=== PATIENT | female | born 1985 | race African-American/Black ===

== ENCOUNTER 2017-06-23 12:57 | Emergency (ER) | payer OTHER ==
[~2017-06-23] VITALS: Ht 162.6 cm; Wt 97.5 kg
[2017-06-23 13:10] VITALS: BP 124/73
== END 2017-06-23 13:56 | disposition home or self-care (01) ==
LOC: ER 12:57
DX: J02.9 Acute pharyngitis, unspecified (principal)

== ENCOUNTER 2017-10-23 07:10 | Inpatient (IN) | payer MEDICAID ==
[~2017-10-23] VITALS: Ht 162.6 cm; Wt 98.0 kg
[2017-10-23 08:31] LABS: Basophils # (auto) 0 uL; Basophils % (auto) 0.3 % (0.0-2.0); Eosinophils # (auto) 0 uL; Hematocrit 38.8 % (36.0-46.0); Hemoglobin 13.2 g/dL (12.2-16.2); Lymphocytes # (auto) 0.7 uL; Lymphocytes % (auto) 11.8 % (10.0-50.0); Mean Corpuscular Hemoglobin 29.1 pg (28.0-32.0); Mean Corpuscular Volume 85.5 fL (80.0-100.0); Monocytes # (auto) 0.4 uL; Monocytes % (auto) 6.8 % (0.0-12.0); Neutrophils # (auto) 4.9 uL; Neutrophils % (auto) 81.1 % (37.0-80.0); Nucleated Red Blood Cells % 0.1 %; Platelet Count (auto) 182 10^3/uL (140-450); Red Blood Cells 4.54 10^6/uL (4.0-5.20); Red Cell Distribution Width 13.9 % (11.8-14.3)
[2017-10-23 08:36] LABS: Albumin 3.3 g/dL (3.4-5.0); BUN/Creatinine Ratio 4.5; Calcium 8.5 mg/dL (8.5-10.1); Potassium 3.2 mmol/L (3.5-5.1)
[2017-10-23 08:40] LABS: Bilirubin, Total 0.2 mg/dL (0.2-1.0)
[2017-10-23] MEDS ORDERED: POTASSIUM CHL 10% (20 MEQ/15ML) 15ml ORAL SOLN PO ONE (10:00)
[2017-10-23] MEDS ORDERED: KETOROLAC TROMETH 60MG/2ML VIAL IM ONE (10:00)
[2017-10-23 10:38] LABS: Urine Bacteria NONE SEEN /hpf (None Seen); Urine Blood 3+ /uL (Negative); Urine Mucus FEW (None Seen); Urine Specific Gravity 1.012 (1.001-1.035); Urine WBC 10 /hpf (0 - 5)
[2017-10-23] MEDS ORDERED: cefTRIAXone 1GM/10ml IVPUSH 10 ML IV ONE (11:00)
[2017-10-23] MEDS ORDERED: AZITHROMYCIN 500MG/ 250ML 250 ML IV ONE (11:00)
[2017-10-23] MEDS ORDERED: DOCUSATE SOD 100 MG CAP PO PRN (13:15)
[2017-10-23] MEDS ORDERED: MORPHINE SULFATE 4 MG/ML SYR/VIAL IV PRN (13:15)
[2017-10-23] MEDS ORDERED: ONDANSETRON HCL 4 MG/2 ML VIAL IV PRN (13:15)
[2017-10-23] MEDS ORDERED: NITROGLYCERIN 0.4 MG SL TAB SL PRN (13:15)
[2017-10-23] MEDS ORDERED: ACETAMINOPHEN 325 MG TAB PO PRN ×2 (13:15)
[2017-10-23] MEDS ORDERED: TEMAZEPAM 15 MG CAP PO PRN (13:15)
[2017-10-23] MEDS: SODIUM CHLORIDE 0.9% 1,000 ML IV SCH (13:58)
[2017-10-23 14:41] VITALS: BP 146/72
[2017-10-23 15:00] VITALS: BP 109/70
[2017-10-23] MEDS: HYDROcodone-ACET 5/325MG TAB PO PRN (15:26)
[2017-10-23 17:27] VITALS: BP 101/55
[2017-10-23] MEDS: BOOST PLUS 8 ounce PO SCH (18:02)
[2017-10-23 18:11] LABS: BUN/Creatinine Ratio 6.3; Calcium 7.8 mg/dL (8.5-10.1); Potassium 3.4 mmol/L (3.5-5.1)
[2017-10-23] MEDS: FAMOTIDINE 20 MG TAB PO SCH (21:34)
[2017-10-23 21:52] VITALS: BP 138/85
[2017-10-23 21:53] VITALS: BP 138/85
[2017-10-23] MEDS: IPRATROPIUM BROM 0.5 MG/2.5ML INH SOL NEB SCH (22:00)
[2017-10-23] MEDS: ALBUTEROL SULF 2.5 MG/0.5ML(0.5%) NEB SOLN NEB SCH (22:00)
[2017-10-24] MEDS: SODIUM CHLORIDE 0.9% 1,000 ML IV SCH ×2 (05:08→22:24)
[2017-10-24 05:28] VITALS: BP 114/68
[2017-10-24 06:51] LABS: Basophils # (auto) 0 uL; Basophils % (auto) 0.2 % (0.0-2.0); Eosinophils # (auto) 0 uL; Hematocrit 36.5 % (36.0-46.0); Hemoglobin 12.4 g/dL (12.2-16.2); Lymphocytes # (auto) 1.4 uL; Lymphocytes % (auto) 17.6 % (10.0-50.0); Mean Corpuscular Hemoglobin 29.2 pg (28.0-32.0); Mean Corpuscular Hgb Conc. 33.8 g/dL (32.0-36.0); Mean Corpuscular Volume 86.4 fL (80.0-100.0); Monocytes # (auto) 0.5 uL; Monocytes % (auto) 6.2 % (0.0-12.0); Platelet Count (auto) 167 10^3/uL (140-450); Red Blood Cells 4.23 10^6/uL (4.0-5.20); Red Cell Distribution Width 13.8 % (11.8-14.3); White Blood Cell 7.9 10^3/uL (4.4-10.8)
[2017-10-24 07:21] LABS: Albumin 2.7 g/dL (3.4-5.0); BUN/Creatinine Ratio 7.6; Bilirubin, Total 0.3 mg/dL (0.2-1.0); Calcium 7.8 mg/dL (8.5-10.1); Potassium 3.4 mmol/L (3.5-5.1); Total Protein 7.4 g/dL (6.4-8.2)
[2017-10-24] MEDS: MORPHINE SULFATE 4 MG/ML SYR/VIAL IV PRN ×3 (07:55→16:10)
[2017-10-24] MEDS: ALBUTEROL SULF 2.5 MG/0.5ML(0.5%) NEB SOLN NEB SCH ×3 (08:16→22:14)
[2017-10-24] MEDS: IPRATROPIUM BROM 0.5 MG/2.5ML INH SOL NEB SCH ×3 (08:16→22:14)
[2017-10-24 09:00] VITALS: BP 119/66
[2017-10-24] MEDS: BOOST PLUS 8 ounce PO SCH ×3 (09:03→18:19)
[2017-10-24] MEDS: cefTRIAXone 1GM/10ml IVPUSH 10 ML IV SCH (09:03)
[2017-10-24] MEDS: FAMOTIDINE 20 MG TAB PO SCH ×2 (09:21→22:17)
[2017-10-24] MEDS: HYDROcodone-ACET 5/325MG TAB PO PRN ×2 (09:21→14:22)
[2017-10-24] MEDS: MULTIPLE VITAMIN TAB PO SCH (09:21)
[2017-10-24] MEDS: AZITHROMYCIN 500MG/ 250ML 250 ML IV SCH (09:22)
[2017-10-24 12:00] VITALS: BP 105/68
[2017-10-24] MEDS: guaiFENesin-DM 100/10mg/5ml SYR GT PRN ×2 (16:14→20:24)
[2017-10-24 17:00] VITALS: BP 110/74
[2017-10-24 21:48] VITALS: BP 112/70
[2017-10-25] MEDS: guaiFENesin-DM 100/10mg/5ml SYR GT PRN ×4 (02:03→21:52)
[2017-10-25 04:50] VITALS: BP 116/73
[2017-10-25] MEDS: IPRATROPIUM BROM 0.5 MG/2.5ML INH SOL NEB SCH ×3 (06:06→22:42)
[2017-10-25] MEDS: ALBUTEROL SULF 2.5 MG/0.5ML(0.5%) NEB SOLN NEB SCH ×3 (06:06→22:42)
[2017-10-25 07:14] LABS: BUN/Creatinine Ratio 7.2; Calcium 8.9 mg/dL (8.5-10.1); Potassium 3.7 mmol/L (3.5-5.1)
[2017-10-25 08:00] VITALS: BP 114/67
[2017-10-25] MEDS: BOOST PLUS 8 ounce PO SCH ×3 (08:00→18:00)
[2017-10-25] MEDS: AZITHROMYCIN 500MG/ 250ML 250 ML IV SCH (10:16)
[2017-10-25] MEDS: cefTRIAXone 1GM/10ml IVPUSH 10 ML IV SCH (10:16)
[2017-10-25] MEDS: MULTIPLE VITAMIN TAB PO SCH (10:16)
[2017-10-25] MEDS: FAMOTIDINE 20 MG TAB PO SCH ×2 (10:17→21:52)
[2017-10-25 12:00] VITALS: BP 102/75
[2017-10-25] MEDS: SODIUM CHLORIDE 0.9% 1,000 ML IV SCH (15:04)
[2017-10-25 17:00] VITALS: BP 123/68
[2017-10-25 22:03] VITALS: BP 124/71
[2017-10-26 04:57] VITALS: BP 120/72
[2017-10-26] MEDS: IPRATROPIUM BROM 0.5 MG/2.5ML INH SOL NEB SCH ×2 (07:05→14:08)
[2017-10-26] MEDS: ALBUTEROL SULF 2.5 MG/0.5ML(0.5%) NEB SOLN NEB SCH ×2 (07:05→14:08)
[2017-10-26 08:05] VITALS: BP 117/79
[2017-10-26 08:08] LABS: Basophils # (auto) 0 uL; Basophils % (auto) 0.2 % (0.0-2.0); Eosinophils # (auto) 0 uL; Eosinophils % (auto) 0.4 % (0.0-7.0); Hematocrit 35.3 % (36.0-46.0); Hemoglobin 11.9 g/dL (12.2-16.2); Lymphocytes % (auto) 48.4 % (10.0-50.0); Mean Corpuscular Hemoglobin 29.2 pg (28.0-32.0); Mean Corpuscular Hgb Conc. 33.7 g/dL (32.0-36.0); Mean Corpuscular Volume 86.6 fL (80.0-100.0); Monocytes # (auto) 0.4 uL; Monocytes % (auto) 9.2 % (0.0-12.0); Neutrophils # (auto) 1.7 uL; Neutrophils % (auto) 41.8 % (37.0-80.0); Nucleated Red Blood Cells % 0.2 %; Platelet Count (auto) 202 10^3/uL (140-450); Red Blood Cells 4.08 10^6/uL (4.0-5.20); Red Cell Distribution Width 14.1 % (11.8-14.3); White Blood Cell 4.1 10^3/uL (4.4-10.8)
[2017-10-26 08:16] LABS: Albumin 2.8 g/dL (3.4-5.0); BUN/Creatinine Ratio 5.6; Bilirubin, Total 0.3 mg/dL (0.2-1.0); Calcium 8.7 mg/dL (8.5-10.1); Potassium 3.6 mmol/L (3.5-5.1); Total Protein 7.9 g/dL (6.4-8.2)
[2017-10-26 08:37] VITALS: BP_SYST 117; BP_DIAS 116; BP_DIAS 79
[2017-10-26] MEDS: cefTRIAXone 1GM/10ml IVPUSH 10 ML IV SCH (09:09)
[2017-10-26] MEDS: SODIUM CHLORIDE 0.9% 1,000 ML IV SCH (09:09)
[2017-10-26] MEDS: BOOST PLUS 8 ounce PO SCH ×2 (09:09→13:15)
[2017-10-26] MEDS: AZITHROMYCIN 500MG/ 250ML 250 ML IV SCH (10:02)
[2017-10-26] MEDS: MULTIPLE VITAMIN TAB PO SCH (10:03)
[2017-10-26] MEDS: FAMOTIDINE 20 MG TAB PO SCH (10:03)
[2017-10-26 11:48] VITALS: BP 117/79
[2017-10-26 13:00] VITALS: BP 121/76
== END 2017-10-26 15:05 | disposition home or self-care (01) | DRG 720 ==
LOC: ER 07:10 → TELE 07:11 → TELE-CENTR 15:03
PROVIDERS: ADMIT Internal Medicine; ATTEND Internal Medicine
DX: A41.9 Sepsis, unspecified organism (principal); J11.00 Influenza due to unidentified influenza virus with unspecified type of pneumonia; E44.0 Moderate protein-calorie malnutrition; J18.9 Pneumonia, unspecified organism; E87.1 Hypo-osmolality and hyponatremia; J45.901 Unspecified asthma with (acute) exacerbation; E66.9 Obesity, unspecified; E87.6 Hypokalemia; Z83.3 Family history of diabetes mellitus; Z68.37 Body mass index [BMI] 37.0-37.9, adult
CPT/HCPCS: 36415; 71046; 80048; 80053; 81001; 81025; 83605; 85025; 87040; 87070; 87077; 87086; 87186; 87205; 87400; 93005; 94640; 96365; 96375; 96376; J1885

== ENCOUNTER 2019-02-17 15:07 | Emergency (ER) | payer SELFPAY ==
[~2019-02-17] VITALS: Ht 162.6 cm; Wt 90.7 kg
[2019-02-17 16:50] LABS: Urine Bacteria NONE SEEN /hpf (None Seen); Urine Blood 2+ /uL (Negative); Urine Specific Gravity 1.009 (1.001-1.035); Urine WBC 7 /hpf (0 - 5)
[2019-02-17 17:56] LABS: Albumin 3.3 g/dL (3.4-5.0); Calcium 8.9 mg/dL (8.5-10.1); Potassium 3.5 mmol/L (3.5-5.1)
[2019-02-17 17:59] LABS: BUN/Creatinine Ratio 15.6; Bilirubin, Total 0.2 mg/dL (0.2-1.0); Total Protein 7.8 g/dL (6.4-8.2)
[2019-02-17 18:41] LABS: Basophils # (auto) 0 uL; Basophils % (auto) 0.6 % (0.0-2.0); Eosinophils # (auto) 0.1 uL; Eosinophils % (auto) 1.1 % (0.0-7.0); Hematocrit 39.3 % (36.0-46.0); Hemoglobin 13.1 g/dL (12.2-16.2); Lymphocytes % (auto) 28.6 % (10.0-50.0); Mean Corpuscular Hemoglobin 29.7 pg (28.0-32.0); Mean Corpuscular Hgb Conc. 33.4 g/dL (32.0-36.0); Mean Corpuscular Volume 88.8 fL (80.0-100.0); Monocytes # (auto) 0.7 uL; Monocytes % (auto) 9.8 % (0.0-12.0); Neutrophils # (auto) 4.2 uL; Neutrophils % (auto) 59.9 % (37.0-80.0); Nucleated Red Blood Cells % 0.2 %; Platelet Count (auto) 258 10^3/uL (140-450); Red Blood Cells 4.43 10^6/uL (4.0-5.20); Red Cell Distribution Width 13.9 % (11.8-14.3); White Blood Cell 7.1 10^3/uL (4.4-10.8)
[2019-02-17 21:36] VITALS: BP 118/73
== END 2019-02-17 22:08 | disposition home or self-care (01) ==
LOC: ER 15:15
DX: O20.0 Threatened abortion (principal); Z3A.14 14 weeks gestation of pregnancy
CPT/HCPCS: 36415; 76801; 80053; 81001; 84702; 85025

== ENCOUNTER 2019-03-16 04:15 | Emergency (ER) | payer SELFPAY ==
[~2019-03-16] VITALS: Ht 162.6 cm; Wt 90.7 kg
[2019-03-16 04:54] VITALS: BP 128/83
[2019-03-16 05:16] LABS: Urine Bacteria NONE SEEN /hpf (None Seen); Urine Blood Negative /uL (Negative); Urine Mucus FEW (None Seen); Urine Specific Gravity 1.013 (1.001-1.035); Urine WBC 2 /hpf (0 - 5)
[2019-03-16] MEDS ORDERED: HYDROcodone-ACET 7.5/325MG TAB PO ONE (05:30)
== END 2019-03-16 05:53 | disposition home or self-care (01) ==
LOC: ER 04:16
DX: H66.91 Otitis media, unspecified, right ear (principal)
CPT/HCPCS: 81001; 81025

== ENCOUNTER 2019-12-28 10:23 | Observation (INO) | payer MEDICAID ==
[2019-12-28] MEDS ORDERED: PREN-96 PO (11:46)
== END 2019-12-28 12:11 | disposition home or self-care (01) | DRG 566 ==
LOC: LDRP 10:23
PROVIDERS: ADMIT Obstetrics & Gynecology; ATTEND Obstetrics & Gynecology
DX: O99.89 Other specified diseases and conditions complicating pregnancy, childbirth and the puerperium (principal); N13.30 Unspecified hydronephrosis; Z3A.00 Weeks of gestation of pregnancy not specified
CPT/HCPCS: 59025; 76818; 81002; G0378

== ENCOUNTER 2020-01-01 10:07 | Observation (INO) | payer MEDICAID ==
[~2020-01-01] VITALS: Ht 162.6 cm; Wt 110.2 kg
[~2020-01-01 10:07] MED LIST: PREN-96 PO
[2020-01-01] MEDS ORDERED: LACTATED RINGER'S 1,000 ML IV ONE (12:00)
== END 2020-01-01 14:00 | disposition home or self-care (01) | DRG 566 ==
LOC: LDRP 10:07
PROVIDERS: ADMIT Obstetrics & Gynecology; ATTEND Obstetrics & Gynecology
DX: O36.5990 Maternal care for other known or suspected poor fetal growth, unspecified trimester, not applicable or unspecified (principal); Z3A.00 Weeks of gestation of pregnancy not specified
CPT/HCPCS: 76818; G0378; 81002; 96361; 96365

== ENCOUNTER 2020-01-03 08:23 | Observation (INO) | payer MEDICAID | END 2020-01-03 09:59 | disposition home or self-care (01) | DRG 566 | LOC: LDRP 08:23 | PROVIDERS: ADMIT Specialist; ATTEND Specialist | DX: O36.5930 Maternal care for other known or suspected poor fetal growth, third trimester, not applicable or unspecified (principal); Z3A.37 37 weeks gestation of pregnancy | CPT/HCPCS: 76818; G0378; 81002 ==

== ENCOUNTER 2020-01-08 10:37 | Observation (INO) | payer MEDICAID | END 2020-01-08 12:03 | disposition home or self-care (01) | DRG 566 | LOC: LDRP 10:37 | PROVIDERS: ADMIT Specialist; ATTEND Specialist | DX: O36.5930 Maternal care for other known or suspected poor fetal growth, third trimester, not applicable or unspecified (principal); Z3A.37 37 weeks gestation of pregnancy | CPT/HCPCS: 76818; 81002; G0378; 59025 ==

== ENCOUNTER 2020-01-11 09:36 | Observation (INO) | payer MEDICAID ==
[2020-01-11 11:13] LABS: Basophils # (auto) 0 10 ^3/uL (0-0.2); Basophils % (auto) 0.6 % (0.0-2.0); Eosinophils # (auto) 0 10 ^3/uL (0-0.8); Eosinophils % (auto) 0.9 % (0.0-7.0); Hematocrit 32.3 % (36.0-46.0); Hemoglobin 10.7 g/dL (12.2-16.2); Lymphocytes # (auto) 1.5 10 ^3/uL (0.4-5.4); Lymphocytes % (auto) 29.4 % (10.0-50.0); Mean Corpuscular Hemoglobin 30.8 pg (28.0-32.0); Mean Corpuscular Volume 93.5 fL (80.0-100.0); Monocytes # (auto) 0.5 10 ^3/uL (0-1.3); Monocytes % (auto) 10.3 % (0.0-12.0); Neutrophils % (auto) 58.8 % (37.0-80.0); Nucleated Red Blood Cells % 0.2 %; Platelet Count (auto) 124 10^3/uL (140-450); Red Blood Cells 3.46 10^6/uL (4.0-5.20); Red Cell Distribution Width 14.8 % (11.8-14.3); White Blood Cell 5.1 10^3/uL (4.4-10.8)
[2020-01-11 11:16] LABS: Urine Bacteria MANY /hpf (None Seen); Urine Blood Negative /uL (Negative); Urine Specific Gravity 1.011 (1.001-1.035); Urine WBC 4 /hpf (0 - 5)
[2020-01-11 11:28] LABS: Albumin 1.9 g/dL (3.4-5.0); Calcium 8.7 mg/dL (8.5-10.1); INR 0.91 (0.9-1.15); Partial Thromboplastin Time 28.5 sec (23.64-32.05); Potassium 3.9 mmol/L (3.5-5.1)
[2020-01-11 11:32] LABS: BUN/Creatinine Ratio 11.8; Bilirubin, Total 0.3 mg/dL (0.2-1.0); Total Protein 6.2 g/dL (6.4-8.2); Uric Acid 6.9 mg/dL (2.6-6.0)
== END 2020-01-11 12:12 | disposition home or self-care (01) | DRG 566 ==
LOC: LDRP 09:36
PROVIDERS: ADMIT Obstetrics & Gynecology; ATTEND Obstetrics & Gynecology
DX: O36.5930 Maternal care for other known or suspected poor fetal growth, third trimester, not applicable or unspecified (principal); Z3A.38 38 weeks gestation of pregnancy
CPT/HCPCS: 36415; 76818; 80053; 81001; 81002; 84550; 85025; 85610; 85730; G0378

== ENCOUNTER 2020-01-12 15:00 | Inpatient (IN) | payer MEDICAID ==
[~2020-01-12] VITALS: Ht 162.6 cm; Wt 114.8 kg
[2020-01-12 16:03] LABS: Basophils # (auto) 0 10 ^3/uL (0-0.2); Basophils % (auto) 0.5 % (0.0-2.0); Eosinophils # (auto) 0 10 ^3/uL (0-0.8); Eosinophils % (auto) 0.8 % (0.0-7.0); Hematocrit 32.2 % (36.0-46.0); Hemoglobin 10.8 g/dL (12.2-16.2); Lymphocytes # (auto) 1.4 10 ^3/uL (0.4-5.4); Lymphocytes % (auto) 29.6 % (10.0-50.0); Mean Corpuscular Hemoglobin 31.2 pg (28.0-32.0); Mean Corpuscular Hgb Conc. 33.4 g/dL (32.0-36.0); Mean Corpuscular Volume 93.3 fL (80.0-100.0); Monocytes # (auto) 0.6 10 ^3/uL (0-1.3); Monocytes % (auto) 11.6 % (0.0-12.0); Neutrophils # (auto) 2.8 10 ^3/uL (1.6-8.6); Neutrophils % (auto) 57.5 % (37.0-80.0); Nucleated Red Blood Cells % 0.1 %; Platelet Count (auto) 124 10^3/uL (140-450); Red Blood Cells 3.46 10^6/uL (4.0-5.20); White Blood Cell 4.8 10^3/uL (4.4-10.8)
[2020-01-12 16:06] LABS: Urine Bacteria FEW /hpf (None Seen); Urine Blood Negative /uL (Negative); Urine Specific Gravity 1.006 (1.001-1.035); Urine WBC 1 /hpf (0 - 5)
[2020-01-12 16:17] LABS: INR 0.91 (0.9-1.15); Partial Thromboplastin Time 28.2 sec (23.64-32.05)
[2020-01-12 16:23] LABS: Albumin 1.8 g/dL (3.4-5.0); Calcium 8.3 mg/dL (8.5-10.1); Potassium 4.4 mmol/L (3.5-5.1)
[2020-01-12 16:27] LABS: BUN/Creatinine Ratio 9.6; Bilirubin, Total 0.4 mg/dL (0.2-1.0); Total Protein 5.8 g/dL (6.4-8.2); Uric Acid 6.6 mg/dL (2.6-6.0)
[2020-01-12] MEDS: LACTATED RINGER'S 1,000 ML IV SCH (17:36)
[2020-01-12] MEDS: TERBUTALINE SULFATE 1 MG/ML 1ML VIAL SC SCH ×2 (19:59→20:25)
[2020-01-12] MEDS: LABETALOL HCL 200 MG TAB PO SCH (22:00)
[2020-01-13] VITALS (17 sets, daily range): BP systolic 112–156; BP diastolic 58–102
[2020-01-13] MEDS: LACTATED RINGER'S 1,000 ML IV SCH ×3 (00:39→17:30)
[2020-01-13] MEDS ORDERED: TETRACAINE 1% INJ 2 ML VIAL IJ ONE (08:48)
[2020-01-13] MEDS ORDERED: MIDAZOLAM HCL 1MG/1ML-2 ML VIAL ONE (09:09)
[2020-01-13] MEDS ORDERED: fentaNYL CITRATE 100 MCG/2 ML VL ONE (09:09)
[2020-01-13] MEDS ORDERED: MORPHINE SULF(PF) 0.5MG/ML 10ML VIAL ONE (09:09)
[2020-01-13] MEDS ORDERED: oxyTOCIN 10 UNIT/ML 10ML VIAL ONE (09:39)
[2020-01-13] MEDS ORDERED: PHENYLEPHRINE HCL 10 MG/ML VL ONE (09:44)
[2020-01-13] MEDS: LABETALOL HCL 200 MG TAB PO SCH ×2 (10:00→21:35)
[2020-01-13] MEDS ORDERED: ONDANSETRON HCL 4 MG/2 ML VIAL IV PRN ×2 (10:15→11:00)
[2020-01-13] MEDS ORDERED: NALBUPHINE HCL 10 MG/1ml INJECTION SUBCUT ONE (10:15)
[2020-01-13] MEDS ORDERED: LABETALOL HCL 5 MG/ML 4ML SYRINGE IV PRN (10:15)
[2020-01-13] MEDS ORDERED: DexAMETHasone SOD PHOS 10MG/1ML VIAL INJ IV PRN (10:15)
[2020-01-13] MEDS ORDERED: HYDROmorphone HCL 2 MG/ML VL IV PRN (10:15)
[2020-01-13] MEDS ORDERED: MIDAZOLAM HCL 1MG/1ML-2 ML VIAL IV PRN (10:15)
[2020-01-13] MEDS ORDERED: NALOXONE HCL 0.4 MG/ML VIAL IV PRN (10:15)
[2020-01-13] MEDS ORDERED: diphenhdrAMINE HCL 50 MG/1 ML VL IV PRN (10:15)
[2020-01-13] MEDS ORDERED: KETOROLAC TROMETH 15 mg/ml 1ML VL IV PRN (10:15)
[2020-01-13] MEDS ORDERED: diphenhdrAMINE HCL 50 MG/1 ML VL ONE (10:39)
[2020-01-13] MEDS ORDERED: LACTATED RINGER'S 1,000 ML IV SCH (10:51)
[2020-01-13] MEDS ORDERED: ceFAZolin 1GM/50ML 50 ML IV SCH (11:00)
--- NOTE | 2020-01-13 12:00 | NUR ---
Post Op for LDRP: Received patient from PACU via bed to room 108 B. Patient A/A/Ox4, abdominal binder and bilateral SCD's are in place, IV fluids placed on pump and infusing per order, incisional site dressing clean/dry/intact and Thomas Catheter to gravity draining clear yellow urine.Incentive Spirometer at bedside and instruction on proper use with return demonstration done by patient.
--- NOTE | 2020-01-13 12:25 | NUR ---
Teaching: Reviewed information in [facility] booklet with patient. Discussed benefits of and risks associated with not . Discussed different positions, proper latch, feeding cues, and baby-led . Provided information of medication side effects related to . Pt instructed to call when the infant is done eating for blood sugar check. All questions and concerns addressed at this time. Patient verbalized understanding of information. latched on
--- NOTE | 2020-01-13 15:50 | NUR ---
DR LARSEN UPDATED WITH PT STATUS AND BP READINGS, ORDER RECEIVED TO CONTINUE LABETALOL 200 MG PO TWICE A DAY.
[2020-01-13] MEDS: ceFAZolin 1GM/50ML 50 ML IV SCH (17:28)
[2020-01-13] MEDS: ACETAMINOPHEN IV 1000 MG/100ML (10MG/ML) IV PRN (18:56)
--- NOTE | 2020-01-13 22:45 | NUR ---
AMBULATION Clare care provided, SCD's removed, gown changed, patient sits at edge of bed dangling feet. Pt declines any dizziness or weakness. Pt ambulates to end of jacques and back to room via steady gait with standby assist from this RN. Pt returns to room and sits in chair. Bed linen change provided. No signs of distress noted. Call light within reach.
[2020-01-13] MEDS: HYDROmorphone HCL 2 MG/ML VL IV PRN (23:50)
[2020-01-14] MEDS: ceFAZolin 1GM/50ML 50 ML IV SCH ×2 (01:15→09:31)
[2020-01-14] MEDS: LACTATED RINGER'S 1,000 ML IV SCH (01:16)
[2020-01-14 03:00] VITALS: BP 146/77
[2020-01-14] MEDS: HYDROmorphone HCL 2 MG/ML VL IV PRN (03:54)
--- NOTE | 2020-01-14 04:53 | NUR ---
Call placed to Dr. Miramontes. Full SBAR given including post-op patient complains of pain 8/10 unrelieved by currently prescribed medications. Orders received for Toradol 30mg IVP once.
[2020-01-14] MEDS ORDERED: KETOROLAC TROMETH 15 mg/ml 1ML VL IV ONE (05:00)
--- NOTE | 2020-01-14 05:11 | NUR ---
Toradol not available in [facility] pyxis. Call placed to house calls nurse requesting her to pull medication from med pyxis in another unit. matrix supervisor states she will head over in just a minute.
[2020-01-14] MEDS ORDERED: KETOROLAC TROMETH 30 MG/ML 1ML VIAL ONE (05:30)
--- NOTE | 2020-01-14 05:40 | NUR ---
Luna catheter discontinued Order to discontinue luna catheter. Luna discontinued with clean technique following deflation of balloon. Patient tolerated well with no complaints of pain. Continue care.
[2020-01-14 06:44] VITALS: BP 145/90
[2020-01-14] MEDS: ACETAMINOPHEN IV 1000 MG/100ML (10MG/ML) IV PRN (07:12)
[2020-01-14 07:48] LABS: Basophils # (auto) 0 10 ^3/uL (0-0.2); Basophils % (auto) 0.7 % (0.0-2.0); Eosinophils # (auto) 0 10 ^3/uL (0-0.8); Eosinophils % (auto) 0.6 % (0.0-7.0); Hematocrit 33.1 % (36.0-46.0); Hemoglobin 11.1 g/dL (12.2-16.2); Lymphocytes # (auto) 1.1 10 ^3/uL (0.4-5.4); Lymphocytes % (auto) 17.6 % (10.0-50.0); Mean Corpuscular Hemoglobin 31.2 pg (28.0-32.0); Mean Corpuscular Hgb Conc. 33.7 g/dL (32.0-36.0); Mean Corpuscular Volume 92.7 fL (80.0-100.0); Monocytes # (auto) 0.6 10 ^3/uL (0-1.3); Monocytes % (auto) 10.5 % (0.0-12.0); Neutrophils # (auto) 4.3 10 ^3/uL (1.6-8.6); Neutrophils % (auto) 70.6 % (37.0-80.0); Nucleated Red Blood Cells % 0.1 %; Platelet Count (auto) 133 10^3/uL (140-450); Red Blood Cells 3.57 10^6/uL (4.0-5.20); Red Cell Distribution Width 15.2 % (11.8-14.3); White Blood Cell 6.1 10^3/uL (4.4-10.8)
[2020-01-14 08:02] LABS: Albumin 1.7 g/dL (3.4-5.0); Calcium 8.3 mg/dL (8.5-10.1); Potassium 4.4 mmol/L (3.5-5.1)
[2020-01-14 08:05] LABS: BUN/Creatinine Ratio 10.9; Bilirubin, Total 0.6 mg/dL (0.2-1.0); Total Protein 5.5 g/dL (6.4-8.2)
[2020-01-14 08:09] LABS: RPR Non Reactive (Non Reactive)
[2020-01-14] MEDS ORDERED: HYDROcodone-ACET 5/325MG TAB PO PRN (08:30)
[2020-01-14] MEDS: HYDROcodone-ACET 5/325MG TAB PO PRN ×2 (09:32→19:22)
[2020-01-14] MEDS: SIMETHICONE 80 MG CHEWABLE TABLET PO PRN ×2 (09:32→22:14)
[2020-01-14] MEDS: LABETALOL HCL 200 MG TAB PO SCH ×2 (09:34→22:15)
[2020-01-14 10:50] VITALS: BP 141/80
[2020-01-14] MEDS: DOCUSATE SOD 100 MG CAP PO SCH ×2 (12:07→22:14)
[2020-01-14] MEDS: IBUPROFEN 800 MG TAB PO PRN ×2 (12:07→22:20)
[2020-01-14 15:10] VITALS: BP 140/79
--- NOTE | 2020-01-14 18:25 | NUR ---
Opening Shift Note MOB Assumed care of patient, MOB awake and alert x 4. No S/S of distress/SOB on room air. Reports tolerable pain 11/27, denies the need for pain medication at this time. MOB infant at this time. Bed locked in lowest position call light within reach. Support person at bedside. Instructed on POC and to call for assist PRN, will continue to monitor for changes Q1hr and PRN. Addendum: 01/14/20 at 2321 by SANDY CUNNINGHAM RN Pain 01/27 right now 1824, denies need for pain medication
[2020-01-14 19:00] VITALS: BP 143/86
--- NOTE | 2020-01-14 20:15 | NUR ---
Navarro Mejia CNM at nurses station SBAR given including 38.5 Repeat 0950 on 01/13/20, at 1900 patient Pain 10/10 had temp of 102.7 patient was shivering room temp was on high patient had 2 blankets. Removed two blankets, Ice water, lowered temp in room and [place] 2 tabs given. One hour later temp 100.7, Pain now 7/10 per patient this is a tolerable pain level. Blood pressure was 143/86 now 141/78 HR 105 patient has scheduled labetalol at 2200. No S/S of distress or SOB. Orders received to give PO hydration, Order COVID 19 Swab. Then reassess temp at 2100. Will continue with POC.
--- NOTE | 2020-01-14 21:00 | NUR ---
NAIN Mejia CN Update on patient Temp. Orders received to start 1 GM Rocephin daily, Blood Cultures, Straight Catheter, UA and urine bacteria. will carry out orders.
--- NOTE | 2020-01-14 21:30 | NUR ---
Straight Cath Preformed, patient tolerated well. Addendum: 01/15/20 at 0245 by SANDY CUNNINGHAM RN 275 ml yellow urine out.
[2020-01-14 21:48] LABS: Urine WBC None Seen /hpf (0 - 5)
[2020-01-14] MEDS ORDERED: cefTRIAXone 1GM/50ML D5W 50 ML IV SCH (22:00)
[2020-01-14 22:02] LABS: Urine Bacteria NONE SEEN /hpf (None Seen); Urine Blood Negative /uL (Negative); Urine Specific Gravity 1.007 (1.001-1.035)
--- NOTE | 2020-01-14 22:15 | NUR ---
RN. Velasqeuz attempted to place IV x2. then this RYLAND Grant attempted x1 will update CNM.
[2020-01-14] MEDS ORDERED: ACETAMINOPHEN 325 MG TAB PO ONE (22:45)
--- NOTE | 2020-01-14 22:45 | NUR ---
Navarro Mejia CNM at patient bedside for assessment and IV placement, not able to place IV, Orders received for Tylenol 650mg PO PRN for increased temp patient has temp of 102.6 and IM 1 gm Rocephin with 1% lidocaine.
--- NOTE | 2020-01-14 22:54 | NUR ---
Tylenol 650 PO given for increased temp.
[2020-01-14] MEDS ORDERED: LIDOCAINE 1% HCL (LOCAL ANESTH.) INJ 20ML MDV ID ONE (23:00)
[2020-01-14] MEDS ORDERED: cefTRIAXone SOD 1,000 MG VL IM ONE (23:00)
--- NOTE | 2020-01-14 23:03 | NUR ---
COVID 19 Swab performed by this RN in PPE.
--- NOTE | 2020-01-14 23:20 | NUR ---
Dragline Mechanic, Antoine, to [facility] for IV placement
--- NOTE | 2020-01-14 23:26 | NUR ---
IV insertion IV access obtained, via clean sterile technique by inserting 20 gauge catheter at left FA. IV secured properly. No trauma to site. Patient tolerated well.
[2020-01-15] VITALS (7 sets, daily range): BP systolic 120–153; BP diastolic 60–92
--- NOTE | 2020-01-15 00:45 | NUR ---
Vital Signs Reassessment
--- NOTE | 2020-01-15 01:05 | NUR ---
Order Clarification Call placed to Navarro Mejia CNM regarding IV and PO hydration, Start NS 125ml/hr and PO hydration. Will carry out orders.
[2020-01-15] MEDS ORDERED: SODIUM CHLORIDE 0.9% 1,000 ML IV SCH ×2 (01:15→06:15)
--- NOTE | 2020-01-15 01:31 | NUR ---
NS 125 ml/hr started per orders for IVF Hydration
[2020-01-15] MEDS ORDERED: ACETAMINOPHEN 325 MG TAB PO PRN ×2 (03:00)
[2020-01-15] MEDS ORDERED: HYDROcodone-ACET 5/325MG TAB PO PRN (03:00)
--- NOTE | 2020-01-15 04:00 | NUR ---
Patient calls nurses station requesting pain medication pain now 03/29
[2020-01-15] MEDS: HYDROcodone-ACET 5/325MG TAB PO PRN ×4 (04:07→22:01)
--- NOTE | 2020-01-15 05:57 | NUR ---
Navarro Mejia CNM at patients bedside and for morning rounds Orders to reduce NS IV hydration to 50 mls/hr
--- NOTE | 2020-01-15 07:20 | NUR ---
Safety Discussed importance of hand hygiene and proper PPE when coming in contact with patient per Policy. Offered to transfer to nursery as per [address] policy. Patient refuses leave the room for anything other than pediatric assessment. Educated patient on wearing a mask when holding infant and performing hand hygiene before and after any close contact with infant. Patient verbalizes understanding and willingness to comply to all teaching discussed at this time. Continued care.
[2020-01-15] MEDS: DOCUSATE SOD 100 MG CAP PO SCH ×2 (09:28→21:58)
[2020-01-15] MEDS: LABETALOL HCL 200 MG TAB PO SCH ×2 (09:29→22:00)
[2020-01-15] MEDS: IBUPROFEN 800 MG TAB PO PRN (11:32)
--- NOTE | 2020-01-15 11:46 | NUR ---
Report given to Justice Chopra RN, who will assume care of patient.
--- NOTE | 2020-01-15 15:24 | NUR ---
1200 Dr. Gale was in nursing station and sbar report given . New orders recieved ok to d/c ns order and s/l iv.
[2020-01-15] MEDS ORDERED: cefTRIAXone 1GM/50ML D5W 50 ML IV SCH (23:00)
[2020-01-16 02:41] VITALS: BP 133/68
[2020-01-16] MEDS: HYDROcodone-ACET 5/325MG TAB PO PRN (06:12)
[2020-01-16 06:41] VITALS: BP 130/64
[2020-01-16] MEDS ORDERED: TETANUS-DIPTH-ACEL PERTUSSIS 0.5ML SYR Tdap IM ONE (08:15)
--- NOTE | 2020-01-16 08:45 | NUR ---
CALLED IN PRESCRIPTION FOR LABETALOL 200MG PO BID TO [facility], NUMBER [phone] SPOKE TO IDDA.
--- NOTE | 2020-01-16 09:15 | NUR ---
Discharge: Discharge instructions given as ordered. Pt encouraged to follow up with BUDGET AND POLICY ANALYST as instructed. All questions and concerns addressed. Patient verbalized understanding. Medication reconciliation completed and copy given to patient. All required/requested vaccines given and copies of vaccinations given to patient. Patient encouraged to prepare to depart unit.Discharge: ID bands matched and ID verification form signed and witnessed. One ID band was removed and placed in chart. Infant taken to vehicle, accompanied by staff, mother of baby, and family member along with all personal belongings. secured in rear-facing car seat by parent and verified by staff. No distress or adverse changes in status since initial assessment was noted at time of departure.
== END 2020-01-16 09:15 | disposition home or self-care (01) | DRG 540 ==
LOC: LDRP 15:00 → OBSVTOIN 16:50 → LDRP 16:59
PROVIDERS: ADMIT Specialist; ATTEND Specialist
PROC: 10D00Z1 Extraction of Products of Conception, Low, Open Approach (ICD-10-PCS; principal; 2020-01-13 09:19)
DX: O13.4 Gestational [pregnancy-induced] hypertension without significant proteinuria, complicating childbirth (principal); O99.214 Obesity complicating childbirth; O14.94 Unspecified pre-eclampsia, complicating childbirth; O69.81X0 Labor and delivery complicated by cord around neck, without compression, not applicable or unspecified; O34.211 Maternal care for low transverse scar from previous cesarean delivery; Z3A.38 38 weeks gestation of pregnancy; Z37.0 Single live birth; Z11.59 Encounter for screening for other viral diseases
CPT/HCPCS: 36415; 51702; 59025; 80053; 81001; 81002; 84112; 84550; 85025; 85610; 85730; 86592; 86850; 86900; 86901; 87040; 87086; 90715; 94760; 96365; 96366; 96375; G0378; J0131; J0690; J0696; J1885; J2250; J2590

== ENCOUNTER 2021-04-15 11:19 | Emergency (ER) | payer MEDICAID ==
[~2021-04-15] VITALS: Ht 162.6 cm; Wt 101.6 kg
[2021-04-15 11:26] VITALS: BP 137/86
[2021-04-15 12:46] LABS: Urine Bacteria NONE SEEN /hpf (None Seen); Urine Blood 3+ /uL (Negative); Urine Mucus FEW (None Seen); Urine Specific Gravity 1.013 (1.001-1.035); Urine WBC 3 /hpf (0 - 5)
[2021-04-15 13:50] LABS: Basophils # (auto) 0 10 ^3/uL (0-0.2); Basophils % (auto) 0.6 % (0.0-2.0); Eosinophils # (auto) 0.1 10 ^3/uL (0-0.8); Eosinophils % (auto) 1.4 % (0.0-7.0); Hematocrit 37.3 % (36.0-46.0); Hemoglobin 12.7 g/dL (12.2-16.2); Lymphocytes # (auto) 3.1 10 ^3/uL (0.4-5.4); Lymphocytes % (auto) 54.7 % (10.0-50.0); Mean Corpuscular Hemoglobin 29.6 pg (28.0-32.0); Mean Corpuscular Volume 86.9 fL (80.0-100.0); Monocytes # (auto) 0.4 10 ^3/uL (0-1.3); Neutrophils # (auto) 2.1 10 ^3/uL (1.6-8.6); Neutrophils % (auto) 36.3 % (37.0-80.0); Red Blood Cells 4.29 10^6/uL (4.0-5.20); Red Cell Distribution Width 13.9 % (11.8-14.3); White Blood Cell 5.7 10^3/uL (4.4-10.8)
== END 2021-04-15 15:02 | disposition home or self-care (01) ==
LOC: ER 11:19
DX: O03.4 Incomplete spontaneous abortion without complication (principal); Z79.899 Other long term (current) drug therapy; Z3A.00 Weeks of gestation of pregnancy not specified
CPT/HCPCS: 36415; 76801; 76817; 81001; 84702; 85025; 86850; 86900; 86901

== ENCOUNTER 2022-11-09 00:40 | Emergency (ER) | payer MEDICAID ==
[~2022-11-09] VITALS: Ht 162.6 cm; Wt 100.0 kg
[2022-11-09 00:59] VITALS: BP 121/72
[2022-11-09 01:40] LABS: Basophils # (auto) 0 10 ^3/uL (0-0.2); Basophils % (auto) 0.8 % (0.0-2.0); Eosinophils # (auto) 0 10 ^3/uL (0-0.8); Eosinophils % (auto) 0.5 % (0.0-7.0); Hematocrit 35.9 % (36.0-46.0); Hemoglobin 12.1 g/dL (12.2-16.2); Lymphocytes # (auto) 2.2 10 ^3/uL (0.4-5.4); Lymphocytes % (auto) 43.2 % (10.0-50.0); Mean Corpuscular Hemoglobin 30.5 pg (28.0-32.0); Mean Corpuscular Hgb Conc. 33.7 g/dL (32.0-36.0); Mean Corpuscular Volume 90.5 fL (80.0-100.0); Monocytes # (auto) 0.5 10 ^3/uL (0-1.3); Monocytes % (auto) 10.2 % (0.0-12.0); Neutrophils # (auto) 2.3 10 ^3/uL (1.6-8.6); Neutrophils % (auto) 45.3 % (37.0-80.0); Nucleated Red Blood Cells % 0.1 %; Red Blood Cells 3.97 10^6/uL (4.0-5.20); Red Cell Distribution Width 13.5 % (11.8-14.3); White Blood Cell 5.2 10^3/uL (4.4-10.8)
[2022-11-09 01:58] LABS: Albumin 3.5 g/dL (3.4-5.0); BUN/Creatinine Ratio 17.4; Calcium 8.6 mg/dL (8.5-10.1); Potassium 3.9 mmol/L (3.5-5.1)
[2022-11-09 02:01] LABS: Bilirubin, Total 0.3 mg/dL (0.2-1.0); Total Protein 7.4 g/dL (6.4-8.2)
[2022-11-09] MEDS ORDERED: SODIUM CHLORIDE 0.9% 1,000 ML IV ONE (02:15)
[2022-11-09 02:35] LABS: Urine Bacteria FEW /hpf (None Seen); Urine Blood 3+ /uL (Negative); Urine Specific Gravity 1.016 (1.001-1.035); Urine WBC 2 /hpf (0 - 5)
== END 2022-11-09 03:34 | disposition home or self-care (01) ==
LOC: ER 00:42
DX: O20.8 Other hemorrhage in early pregnancy (principal); O26.891 Other specified pregnancy related conditions, first trimester; R53.1 Weakness; R10.2 Pelvic and perineal pain; Z3A.01 Less than 8 weeks gestation of pregnancy
CPT/HCPCS: 36415; 80053; 81001; 84484; 84702; 85025; 93005; 96360; 99284; J7030

== ENCOUNTER 2024-12-15 08:01 | Emergency (ER) | payer MEDICAID ==
[~2024-12-15] VITALS: Ht 162.6 cm; Wt 85.3 kg
--- NOTE | 2024-12-15 08:27 | ED.PDOC ---
HPI Comments 39Y F with PMHx anxiety presents to ED for chief complaint chest pain x 3days. Pt states chest pain is substernal and radiates to neck. Pt describes chest pain as tight and sharp. Additional symptoms include SOB, palpitations, cough, and congestion. Pt states she feels anxious and is currently experiencing life stressors. No other symptoms reported. Chief Complaint: Chest Pain Time Seen by MD: 08:10 Primary Care Provider: MOHIT Glass Notes: Nurses Notes, Medications, Allergies Allergies: Coded Allergies: NO KNOWN ALLERGIES (Unverified , 06/23/17) Home Meds Reported Medications Vit W/ Ferrous Fumara ( One Daily) Daily Tab, 1 TAB PO DAILY, #90 TAB 3 Refills 12/28/19 Information Source: Patient Mode of Arrival: Ambulatory Severity: Mild Timing: Days Duration: Since onset Prehospital treatment: None Location: Substernal Radiation: Neck Quality: Sharp, Tightness Onset: At Rest Cardiac Risk Factors: None PE Risk Factors: None History of: None Modifying Factors: Nothing Associated Signs and Symptoms: SOB, Palpitations, Other Past Medical History PAST MEDICAL HISTORY: Anxiety Surgical History: KENNEL ATTENDANT History: Spontaneous Family History Family History: Unknown Social History Smoker: Non-Smoker Alcohol: Denies ETOH Use Drugs: Denies Drug Use Lives In: Home Constitutional: denies: chills, diaphoresis, fatigue, fever, malaise, sweats, weakness, others EENTM: reports: nose congestion; denies: blurred vision, double vision, ear bleeding, ear discharge, ear drainage, ear pain, ear ringing, eye pain, eye redness, hearing loss, mouth pain, mouth swelling, nasal discharge, nose bleeding, nose pain, photophobia, tearing, throat pain, throat swelling, voice changes, others Respiratory: reports: cough, shortness of breath; denies: hemoptysis, orthopnea, SOB at rest, SOB with excertion, stridor, wheezing, others Cardiovascular: reports: chest pain, palpitations; denies: dizzy spells, diaphoresis, Dyspnea on exertion, edema, irregular heart beat, left arm pain, lightheadedness, PND, syncope, others Gastrointestinal: denies: abdomen distended, abdominal pain, blood streaked bowels, constipated, diarrhea, dysphagia, difficulty swallowing, hematemesis, melena, nausea, poor appetite, poor fluid intake, rectal bleeding, rectal pain, vomiting, others Genitourinary: denies: abnormal vagina bleeding, burning, dyspareunia, dysuria, flank pain, frequency, hematuria, incontinence, pain, , vagina discharge, urgency, others Neurological: denies: dizziness, fainting, headache, left sided numbness, left sided weakness, numbness, paresthesia, pre-existing deficit, right sided numbness, right sided weakness, seizure, speech problems, tingling, tremors, weakness, others Musculoskeletal: denies: back pain, gout, joint pain, joint swelling, muscle pain, muscle stiffness, neck pain, others Integumetry: denies: bruises, change in color, change in hair/nails, dryness, laceration, lesions, lumps, rash, wounds, others Allergic/Immunocompromised: denies: Difficulty Healing, Frequent Infections, Hives, Itching, others Hematologic/Lymphatic: denies: anemia, blood clots, easy bleeding, easy bruising, swollen glands, others Endocrine: denies: excessive hunger, excessive sweating, excessive thirst, excessive urination, flushing, intolerance to cold, intolerance to heat, unexplained weight gain, unexplained weight loss, others Psychiatric: reports: anxiety; denies: bipolar disorder, depression, hopeless, panic disorder, schizophrenia, sleepless, suicidal, others All Other Systems: Reviewed and Negative Physical Exam General Appearance: No Apparent Distress, Normal HEENT: Normal ENT Inspection, Pharynx Normal, TMs Normal Neck: Full Range of Motion, Non-Tender, Normal, Normal Inspection Respiratory: Chest Non-Tender, Lungs Clear, No Accessory Muscle Use, No Respiratory Distress, Normal Breath Sounds Cardiovascular: No Edema, No Murmur, No Gallop, Normal Peripheral Pulses, Regular Rate/Rhythm Breast Exam: Deferred Gastrointestinal: No Organomegaly, Non Tender, Normal Bowel Sounds, Soft Genitalia: Deferred Pelvic: Deferred Rectal: Deferred Extremities: No calf tenderness, Normal capillary refill, Normal inspection, Normal range of motion, Non-tender, No pedal edema Musculoskeletal : Apperance: Normal Neurologic: Alert, ui software engineer II-XII nml as Tested, No Motor Deficits, Normal Affect, Normal Mood, No Sensory Deficits Cerebellar Function: NOT DONE Reflexes: NOT DONE Skin: Dry, Normal Color, Warm Lymphatic: No Adenopathy EKG EKG #1: Pulse Rate (adult): 71 Cardiac Rhythm: NSR Block: None Hypertrophy: LVH EKG #2: Pulse Rate (adult): 66 Cardiac Rhythm: NSR Block: None Hypertrophy: LVH Was a procedure done? Was a procedure done?: No CP Differential Dx Differential Diagnosis: Anxiety / Panic Attack, SD, Pulmonary Embolus, Renal Failure, WPW X-Ray, Labs, Meds, VS Vital Signs Date Time Temp Pulse Resp B/P (MAP) Pulse Ox O2 Delivery O2 Flow Rate FiO2 12/15/24 10:31 66 12/15/24 09:55 98.0 70 16 117/76 (90) 99 98.0 12/15/24 09:02 66 12/15/24 08:59 Room Air* 0 21 12/15/24 08:32 71 12/15/24 08:08 71 12/15/24 08:04 98.1 61 16 130/85 (100) 100 98.1 Lab Test 12/15/24 09:05 12/15/24 08:11 12/15/24 08:06 Range/Units Troponin I High Sensitivity 3 L 3 L </=34 ng/L Urine Color Light-yellow Yellow Urine Clarity Clear Clear Urine pH 5.5 5.0-9.0 Urine Specific [place] 1.014 1.001-1.035 Urine Protein Negative Negative Urine Ketones Negative Negative Urine Blood Negative Negative /uL Urine Nitrite Negative Negative Urine Bilirubin Negative Negative Urine Urobilinogen Normal Negative mg/dL Urine Leukocyte Esterase Negative Negative /uL Urine RBC None seen 0 - 4 /hpf Urine Microscopic WBC < 1 0-5 /HPF Urine Squamous Epithelial Cells Few <5 /hpf Urine Bacteria Few H None Seen /hpf Urine Glucose Normal Normal mg/dL Urine Test Negative Negative Urine Opiates Screen Neg NEGATIVE Urine Fentanyl Screen Neg NEGATIVE Urine Barbiturates Screen Neg NEGATIVE Urine Phencyclidine Screen Neg NEGATIVE Urine Amphetamines Screen Neg NEGATIVE Urine Benzodiazepines Screen Neg NEGATIVE Urine Cocaine Screen Neg NEGATIVE Urine Cannabinoids Screen Pos NEGATIVE White Blood Count 3.7 L 4.4-10.8 10^3/uL Red Blood Count 4.31 4.0-5.20 10^6/uL Hemoglobin 13.2 12.2-16.2 g/dL Hematocrit 39.7 36.0-46.0 % Mean Corpuscular Volume 92.2 80.0-100.0 fL Mean Corpuscular Hemoglobin 30.6 28.0-32.0 pg Mean Corpuscular Hemoglobin Concent 33.2 32.0-36.0 g/dL Red Cell Distribution Width 13.5 11.8-14.3 % Platelet Count 273 140-450 10^3/uL Mean Platelet Volume 9.2 6.9-10.8 fL Neutrophils (%) (Auto) 41.4 37.0-80.0 % Lymphocytes (%) (Auto) 46.8 10.0-50.0 % Monocytes (%) (Auto) 10.5 0.0-12.0 % Eosinophils (%) (Auto) 0.7 0.0-7.0 % Basophils (%) (Auto) 0.6 0.0-2.0 % Neutrophils # (Auto) 1.5 L 1.6-8.6 10 ^3/uL Lymphocytes # (Auto) 1.7 0.4-5.4 10 ^3/uL Monocytes # (Auto) 0.4 0-1.3 10 ^3/uL Eosinophils # (Auto) 0 0-0.8 10 ^3/uL Basophils # (Auto) 0 0-0.2 10 ^3/uL Nucleated Red Blood Cells 0.2 % D-Dimer, Quantitative 0.89 H 0.0-0.49 mg/L FEU Sodium Level 140 136-145 mmol/L Potassium Level 4.2 3.5-5.1 mmol/L Chloride Level 106 98-107 mmol/L Carbon Dioxide Level 25 20-31 mmol/L Anion Gap 9 5-15 Blood Urea Nitrogen 12 9-23 mg/dL Creatinine 0.93 0.550-1.02 mg/dL Glomerular Filtration Rate Calc 80 >90 mL/min BUN/Creatinine Ratio 12.9 10.0-20.0 Serum Glucose 95 74-106 mg/dL Calcium Level 9.6 8.7-10.4 mg/dL Total Bilirubin 0.3 0.2-1.0 mg/dL Aspartate Amino Transferase (AST) < 8 L 13-40 U/L Alanine Aminotransferase (ALT) 9 7-40 U/L Alkaline Phosphatase 72 46-116 U/L Total Protein 7.1 5.7-8.2 g/dL Albumin 4.2 3.2-4.8 g/dL ing a metastatic mass noted low initially longitudinal quantify EMS show X-Ray, Labs, Meds, VS Comment This 39-year-old female who is currently undergoing copious cellulitis stressors presents secondary to palpitations and shortness of breath. Here she had an elevated D-dimer. CTA of the chest was negative. Otherwise, her workup was completely benign. As such, discharge her home. Believe her underlying diagnosis is going to be anxiety. She will be provided a prescription for Vistaril. She should consider relaxation techniques and follow up with the PCP next 1 2 days return to the ER for any new/worse/worsening symptoms. She states her understanding. Time of 1ST Reevaluation: 08:40 Reevaluation 1ST: Unchanged Patient Education/Counseling: Diagnosis, Treatment Family Education/Counseling: No Family Present Departure 1 Departure Time of Disposition: 11:51 Impression: Primary Impression: Chest pain Additional Impressions: Dyspnea Anxiety Disposition: 01 HOME / SELF CARE / HOMELESS Condition: Good Discharged With: Self Critical Care Note Critical Care Time?: No Stability Stability form required: No Heart Score Heart Score: Heart Score Response (Comments) Value History Slightly Suspicious 0 EKG Normal 0 Age <45 0 Risk Factors No known risk factors 0 Troponin Normal limit 0 Total 0 I personally scribed for JOSELITO MARIN MD ([email or web address]) on 12/15/24 at 08:27. Electro nically submitted by Leah Tatum (Keen Impressions). I personally scribed for JOSELITO MARIN MD ([email or web address]) on 12/15/24 at 08:32. El ectronically submitted by Leah Tatum (Keen Impressions). I personally scribed for JOSELITO MARIN MD ([email or web address]) on 12/15/24 at 08:34. Electronically submitted by Leah Tatum (Keen Impressions). I personally scribed for JOSELITO MARIN MD ([email or web address]) on 12/15/24 at 10:31. Electronically submitted by Leah Tatum (Keen Impressions). JOSELITO MARIN MD Dec 15, 2024 08:27
[2024-12-15 08:44] LABS: Albumin 4.2 g/dL (3.2-4.8); Alkaline Phosphatase 72 U/L (46-116); Anion Gap 9 (5-15); BUN/Creatinine Ratio 12.9 (10.0-20.0); Bilirubin, Total 0.3 mg/dL (0.2-1.0); Blood Urea Nitrogen 12 mg/dL (9-23); Calcium 9.6 mg/dL (8.7-10.4); Carbon Dioxide 25 mmol/L (20-31); Chloride 106 mmol/L (98-107); Glucose 95 mg/dL (74-106); Potassium 4.2 mmol/L (3.5-5.1); Sodium 140 mmol/L (136-145); Total Protein 7.1 g/dL (5.7-8.2)
[2024-12-15 08:47] LABS: Alanine Aminotransferase 9 U/L (7-40); Aspartate Aminotransferase < 8 U/L (13-40)
[2024-12-15 09:07] LABS: Basophils # (auto) 0 10 ^3/uL (0-0.2); Basophils % (auto) 0.6 % (0.0-2.0); Eosinophils # (auto) 0 10 ^3/uL (0-0.8); Eosinophils % (auto) 0.7 % (0.0-7.0); Hematocrit 39.7 % (36.0-46.0); Hemoglobin 13.2 g/dL (12.2-16.2); Lymphocytes # (auto) 1.7 10 ^3/uL (0.4-5.4); Lymphocytes % (auto) 46.8 % (10.0-50.0); Mean Corpuscular Hemoglobin 30.6 pg (28.0-32.0); Mean Corpuscular Hgb Conc. 33.2 g/dL (32.0-36.0); Mean Corpuscular Volume 92.2 fL (80.0-100.0); Monocytes # (auto) 0.4 10 ^3/uL (0-1.3); Monocytes % (auto) 10.5 % (0.0-12.0); Neutrophils # (auto) 1.5 10 ^3/uL (1.6-8.6); Neutrophils % (auto) 41.4 % (37.0-80.0); Nucleated Red Blood Cells % 0.2 %; Platelet Count (auto) 273 10^3/uL (140-450); Red Blood Cells 4.31 10^6/uL (4.0-5.20); Red Cell Distribution Width 13.5 % (11.8-14.3); White Blood Cell 3.7 10^3/uL (4.4-10.8)
[2024-12-15 09:32] LABS: Cannabinoid Screen, Urine Pos (NEGATIVE)
[2024-12-15 09:40] LABS: Urine Bacteria FEW /hpf (None Seen); Urine Blood Negative /uL (Negative); Urine Clarity Clear (Clear); Urine Color Light-Yellow (Yellow); Urine Protein, UAD Negative (Negative); Urine Specific Gravity 1.014 (1.001-1.035); Urine Squamous Epithelial Cell FEW /hpf (<5); Urine Urobilinogen Normal (Negative); Urine WBC < 1 /HPF (0-5); Urine pH 5.5 (5.0-9.0)
[2024-12-15 09:51] LABS: Amphetamine Screen, Urine Neg (NEGATIVE); Barbiturate Scree,Urine Neg (NEGATIVE); Benzodiazephine Screen, Urine Neg (NEGATIVE); Cocaine Screen, Urine Neg (NEGATIVE); Opiate Scree,Urine Neg (NEGATIVE); Phencyclidine Screen, Urine Neg (NEGATIVE)
[2024-12-15] MEDS: IOHEXOL 350 MG/ML 100ML IJ ONE (10:24)
--- NOTE | 2024-12-15 11:29 | DVH ---
CTA Chest with intravenous contrast INDICATION: Shortness of breath, chest pain, elevated D-dimer COMPARISON: None TECHNIQUE: Multidetector spiral CTA of the chest was performed of the chest with intravenous contrast . PULMONARY ANGIOGRAPHY PROTOCOL was utilized using a bolus-tracking technique centered on the main p ulmonary artery. Axial, coronal and sagittal multiplanar and MIP reformats were performed. CONTRAST: Type of contrast: Omni 350 Contrast injected: 70 ml Radiation dose : Chest: CTDI volume is 20.72 mGy. Dose-length product is 495.84 mGy*cm The dose indicators for CT are the volume computed Tomography (CT) dose Index (CTDIvol) and the dose Length product (DLP), and are measured in units of mGy and mGy-cm, respectively. These indicators are not patient dose, but values generated from the CT scanner acquisition factors. The report includes radiation exposure data for exposures received during this examination. Findings: Pulmonary artery: No pulmonary embolism Lower neck: Normal thyroid. Lungs: No focal consolidation, pleural effusion or pneumothorax. Heart/Vascular Structures: Normal heart size. No pericardial effusion. Lymph Nodes: No adenopathy Pleura: No pleural effusion or significant pneumothorax. Musculoskeletal: No acute osseous abnormality. Soft tissues: Normal. Upper abdomen: Limited portions of the upper abdomen are unremarkable. IMPRESSION: 1. No pulmonary embolism. 2. No acute thoracic finding. No evidence of acute intrathoracic abnormality identified. All CT scans at this medical facility are performed using dose modulation techniques as appropriate t o a performed exam including the following: Automated exposure control was utilized; adjustment of th e MA and/or KV according to patient size; and use of iterative reconstruction technique.
[2024-12-15 11:59] VITALS: BP 125/85; PULSE 62; RESP 16; TEMP 98.1; O2SAT 97
--- NOTE | 2024-12-18 11:05 | ECG ---
[facility], [place] Test Date: 2024-12-15 Test Time: 08:08:16 Pat Name: DANO GRULLON Department: ER Room: Gender: F Encapsulator: CHATNELL : 1985 Requested By: JOSELITO MARIN Order Number: [id number] Reading MD: Measurements Intervals [place] Rate: 71 P: 41 GA: 156 QRS: -5 QRSD: 93 T: -3 QT: 383 QTc: 417 Interpretive Statements Sinus rhythm Left ventricular hypertrophy Borderline T abnormalities, inferior leads Please click the below link to view image of tracing.
--- NOTE | 2024-12-18 12:07 | ECG ---
[facility] Test Date: 2024-12-15 Test Time: 09:02:08 Pat Name: DANO GRULLON Department: ED Room: Gender: F Medical Records Clerk: DEBO : 1985 Requested By: JOSELITO MARIN Order Number: [id number] Reading MD: Measurements Intervals [place] Rate: 66 P: 33 [place]: 164 QRS: -4 QRSD: 93 T: -1 QT: 395 QTc: 414 Interpretive Statements Sinus rhythm Left ventricular hypertrophy Please click the below link to view image of tracing.
== END 2024-12-15 12:10 | disposition home or self-care (01) ==
LOC: ER 08:08
DX: R07.89 Other chest pain (principal); R06.00 Dyspnea, unspecified; F41.9 Anxiety disorder, unspecified; Z79.899 Other long term (current) drug therapy
CPT/HCPCS: 36415; 71275; 80053; 80307; 81001; 81025; 84484; 85025; 85379; 93005; 99285; Q9967

== ENCOUNTER 2025-01-14 18:07 | Emergency (ER) | payer MEDICAID ==
[~2025-01-14] VITALS: Ht 162.6 cm; Wt 85.0 kg
--- NOTE | 2025-01-14 18:36 | ED.PDOC ---
History of Present Illness HPI Comments 39 y/o obese F, with a history of anxiety, UTI's, 3x C-sections, and THC edible gummies use, presents with c/o intermittent, RLQ abdominal pain, that radiates to her back for the past 2x days. Patient reports on pain being sharp and stabbing in quality. She endorses also having a "throbbing" sensation in her lower abdomen after urinating and fever and chills the other day that has since resolved on its own prior to arrival. Patient suspects on possible UTI, due to history of symptoms with them in the past, or STD, due to having unprotected sex, recently. Denies any nausea, vomiting, diarrhea, constipation, dysuria, or other associated symptoms at this time. Chief Complaint: Abdominal Pain Time Seen by MD: 18:20 Primary Care Provider: ? Reviewed Notes: Nurses Notes, Medications, Allergies Allergies: Coded Allergies: NO KNOWN ALLERGIES (Unverified , 06/23/17) Home Meds Active Scripts Ondansetron HCl (Ondansetron Hydrochloride) 8 Mg Tab, 8 MG PO Q6HP PRN, #30 TAB Prov:ARTHUR SPARKS MD 01/14/25 Gabapentin (Once-Daily) (Gabapentin) 300 Mg Tab, 300 MG PO Q6HP PRN, #30 TAB Prov:ARTHUR SPARKS MD 01/14/25 Reported Medications Vit W/ Ferrous Fumara ( One Daily) Daily Tab, 1 TAB PO DAILY, #90 TAB 3 Refills 12/28/19 Information Source: Patient Mode of Arrival: Ambulatory Severity: Moderate Timing: Days Duration: Intermittent Past Medical History PAST MEDICAL HISTORY: Anxiety, UTI'S Surgical History: (3x) 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 Family History Family History: Unknown Social History Smoker: Non-Smoker Alcohol: Denies ETOH Use Drugs: Other (THC edible gummies ) Lives In: Home All Other Systems: Reviewed and Negative (as per HPI) Physical Exam General Appearance: No Apparent Distress, Obese HEENT: Normal ENT Inspection, Pharynx Normal, TMs Normal Neck: Full Range of Motion, Non-Tender, Normal, Normal Inspection Respiratory: Chest Non-Tender, Lungs Clear, No Accessory Muscle Use, No Respiratory Distress, Normal Breath Sounds Cardiovascular: No Edema, No JVD, No Murmur, No Gallop, Normal Peripheral Pulses, Regular Rate/Rhythm Breast Exam: Deferred Gastrointestinal: No Organomegaly, No Pulsatile Mass, Normal Bowel Sounds, RLQ (tenderness), Soft, Tenderness (RLQ) Genitalia: Deferred Pelvic: Deferred Rectal: Deferred Extremities: No calf tenderness, Normal capillary refill, Normal inspection, Normal range of motion, Non-tender, No pedal edema Musculoskeletal : Apperance: Normal Neurologic: Alert, digital strategy manager II-XII nml as Tested, No Motor Deficits, Normal Affect, Normal Mood, No Sensory Deficits Cerebellar Function: Normal Reflexes: Normal Skin: Dry, Normal Color, Warm Lymphatic: No Adenopathy Was a procedure done? Was a procedure done?: No Differential Dx Considerations may include: Appendicitis, diverticulitis, nephrolithiasis, pyelonephritis, ovarian cysts, ovarian torsion, PID, UTI, viral syndrome, , among others X-Ray, Labs, Meds, VS Vital Signs Date Time Temp Pulse Resp B/P (MAP) Pulse Ox O2 Delivery O2 Flow Rate FiO2 01/14/25 20:37 98.4 72 16 135/83 (100) 98 98.4 01/14/25 18:38 Room Air* 0 21 01/14/25 18:10 98.5 73 18 111/85 (94) 97 98.5 Lab Test 01/14/25 18:47 01/14/25 18:16 Range/Units White Blood Count 4.0 L 4.4-10.8 10^3/uL Red Blood Count 4.24 4.0-5.20 10^6/uL Hemoglobin 12.8 12.2-16.2 g/dL Hematocrit 37.8 36.0-46.0 % Mean Corpuscular Volume 89.3 80.0-100.0 fL Mean Corpuscular Hemoglobin 30.3 28.0-32.0 pg Mean Corpuscular Hemoglobin Concent 33.9 32.0-36.0 g/dL Red Cell Distribution Width 13.5 11.8-14.3 % Platelet Count 273 140-450 10^3/uL Mean Platelet Volume 9.2 6.9-10.8 fL Neutrophils (%) (Auto) 44.4 37.0-80.0 % Lymphocytes (%) (Auto) 47.2 10.0-50.0 % Monocytes (%) (Auto) 6.6 0.0-12.0 % Eosinophils (%) (Auto) 1.2 0.0-7.0 % Basophils (%) (Auto) 0.6 0.0-2.0 % Neutrophils # (Auto) 1.8 1.6-8.6 10 ^3/uL Lymphocytes # (Auto) 1.9 0.4-5.4 10 ^3/uL Monocytes # (Auto) 0.3 0-1.3 10 ^3/uL Eosinophils # (Auto) 0 0-0.8 10 ^3/uL Basophils # (Auto) 0 0-0.2 10 ^3/uL Nucleated Red Blood Cells 0.2 % Sodium Level 140 136-145 mmol/L Potassium Level 4.0 3.5-5.1 mmol/L Chloride Level 108 H 98-107 mmol/L Carbon Dioxide Level 27 20-31 mmol/L Anion Gap 5 5-15 Blood Urea Nitrogen 8 L 9-23 mg/dL Creatinine 0.89 0.550-1.02 mg/dL Glomerular Filtration Rate Calc 85 >90 mL/min BUN/Creatinine Ratio 9.0 L 10.0-20.0 Serum Glucose 86 74-106 mg/dL Calcium Level 9.7 8.7-10.4 mg/dL Total Bilirubin 0.4 0.2-1.0 mg/dL Aspartate Amino Transferase (AST) 9 L 13-40 U/L Alanine Aminotransferase (ALT) < 9 7-40 U/L Alkaline Phosphatase 62 46-116 U/L Total Protein 7.3 5.7-8.2 g/dL Albumin 4.2 3.2-4.8 g/dL Lipase 34 12-53 U/L Urine Color Light-yellow Yellow Urine Clarity Clear Clear Urine pH 8.0 5.0-9.0 Urine Specific [place] 1.013 1.001-1.035 Urine Protein Negative Negative Urine Ketones Negative Negative Urine Blood Negative Negative /uL Urine Nitrite Negative Negative Urine Bilirubin Negative Negative Urine Urobilinogen Normal Negative mg/dL Urine Leukocyte Esterase Negative Negative /uL Urine RBC <1 0 - 4 /hpf Urine Microscopic WBC < 1 0-5 /HPF Urine Squamous Epithelial Cells Few <5 /hpf Urine Bacteria None seen None Seen /hpf Urine Glucose Normal Normal mg/dL Urine Test Negative Negative Chlamydia trachomatis (AMI) Pending Neisseria gonorrhoeae (AMI) Pending Current Medications Medications (Trade) Dose Ordered Sig/Ronald Route Start Time Stop Time Status Last Admin Sodium Chloride 1,000 ml @ 1,000 mls/hr Q1H ONCE IVB 01/14/25 18:30 01/14/25 19:29 DC 01/14/25 18:50 Ketorolac Tromethamine (Toradol Injection) 15 mg ONCE ONCE IV 01/14/25 18:30 01/14/25 18:31 DC 01/14/25 18:50 [place] [id number] Ph: [phone] DIAGNOSTIC IMAGING Diagnostic Imaging Report : [id number] Signed PATIENT: DANO GRULLON ACCT: [id number] UNIT: [id number] : 1985 LOC: ER ROOM / BED: / AGE / SEX: 39 / F ADM STATUS: REG ER SERVICE [id number] ORDERING PHYSICIAN: ARTHUR SPARKS MD PROCEDURE(s): ABPL - CT AB PEL WO CON-NO ORAL OR IV REASON: right flank pain ORDER NUMBER(s): [id number], ACCESSION NUMBER(s): [id number] Exam: CT CT AB PEL WO CON-NO ORAL OR IV History: right flank pain Comparison Study: None available at time of dictation. TECHNIQUE: Multidetector CT of the abdomen was performed from lung bases to pubic symphysis. Imaging was performed without IV contrast. Axial, coronal and sagittal multiplanar reformats were obtained from the axial data set by the technologist. Radiation Dose Information: CT Dose: CTDI volume is 23.81 mGy. Dose-length product is 1322.38 mGy*cm FINDINGS: Evaluation of solid organs is limited due to lack of intravenous contrast use. Findings: Lung Bases: No acute or significant lung base finding. Normal heart size. No pleural or pericardial effusion. Liver: The liver is normal in size. No focal lesions. Gallbladder and Biliary Tree: Gallbladder is contracted Spleen: Unremarkable Pancreas: The pancreas is grossly normal in appearance. Adrenal Glands: Unremarkable Kidneys: Kidneys are grossly normal without calculi or hydronephrosis. Bladder: Grossly unremarkable for degree of distention. Bowel: The stomach is grossly normal in appearance. Small bowel and colon are normal in caliber and distribution. No findings of bowel obstruction. Stool noted throughout the colon The appendix is not visualized; however, no secondary findings of acute appendicitis identified. Ascites: Absent Lymphadenopathy: No mesenteric, retroperitoneal or periportal lymphadenopathy. Abdominal Wall and Mesentery: Unremarkable. Vasculature: The visualized abdominal aorta is normal in size and caliber. Evaluation of abdominal and pelvic vessels is limited due to lack of intravenous contrast. Pelvic Organs: Unremarkable Musculoskeletal: No aggressive focal bony lesions, acute fractures or dislocation. Soft tissues: Unremarkable IMPRESSION: 1. Gallbladder contracted. 2. No findings of bowel obstruction, stool noted throughout the colon. 3. No nephrolithiasis or hydronephrosis 4. Sigmoid colon appears normal. There is no free air or free fluid. HS:Y Radiation optimization: All CT scans at this facility use at least one of these dose optimization techniques: automated exposure control mA and/or kV adjustment per patient size (includes targeted exams where dose is matched to clinical indication) or iterative reconstruction. ATED BY: ADONIS BERNARD Jr., DO DICTATED DATE/TIME: 01/14/252004 SIGNED BY: ADONIS BERNARD Jr., SIGNED DATE/TIME: 01/14/252004 CC: Time of 1ST Reevaluation: 18:50 Reevaluation 1ST: Unchanged Patient Education/Counseling: Diagnosis, Treatment Family Education/Counseling: No Family Present Departure 1 Departure Time of Disposition: 20:00 Impression: Primary Impression: Right sided abdominal pain Disposition: 01 HOME / SELF CARE / HOMELESS Condition: Stable e-Prescriptions Ondansetron HCl (Ondansetron Hydrochloride) 8 Mg Tab 8 MG PO Q6HP PRN, #30 TAB Prov: ARTHUR SPARKS MD 01/14/25 Gabapentin (Once-Daily) (Gabapentin) 300 Mg Tab 300 MG PO Q6HP PRN, #30 TAB Prov: ARTHUR SPARKS MD 01/14/25 Discharged With: Self Critical Care Note Critical Care Time?: No Stability Stability form required: No Heart Score Heart Score: Heart Score Response (Comments) Value History N/A 0 EKG N/A 0 Age N/A 0 Risk Factors N/A 0 Troponin N/A 0 Total 0 I personally scribed for ARTHUR SPARKS MD ([email or web address]) on 01/14/25 at 18:36. Electronically submitted by Dez [email or web address]). I personally scribed for ARTHUR SPARKS MD ([email or web address]) on 01/14/25 at 20:18. Electronically submitted by Dez Parish [email or web address]). ARTHUR SPARKS MD Jan 14, 2025 18:36
[2025-01-14 18:42] LABS: Urine Bacteria None Seen /hpf (None Seen)
[2025-01-14] MEDS: KETOROLAC TROMETH 30 MG/ML 1ML VIAL IV ONE (18:50)
[2025-01-14] MEDS: SODIUM CHLORIDE 0.9% 1,000 ML IVB ONE (18:50)
[2025-01-14 18:52] LABS: Urine Blood Negative /uL (Negative); Urine Clarity Clear (Clear); Urine Color Light-Yellow (Yellow); Urine Protein, UAD Negative (Negative); Urine Specific Gravity 1.013 (1.001-1.035); Urine Squamous Epithelial Cell FEW /hpf (<5); Urine Urobilinogen Normal (Negative); Urine WBC < 1 /HPF (0-5)
[2025-01-14 19:06] LABS: Basophils # (auto) 0 10 ^3/uL (0-0.2); Basophils % (auto) 0.6 % (0.0-2.0); Eosinophils # (auto) 0 10 ^3/uL (0-0.8); Eosinophils % (auto) 1.2 % (0.0-7.0); Hematocrit 37.8 % (36.0-46.0); Hemoglobin 12.8 g/dL (12.2-16.2); Lymphocytes # (auto) 1.9 10 ^3/uL (0.4-5.4); Lymphocytes % (auto) 47.2 % (10.0-50.0); Mean Corpuscular Hemoglobin 30.3 pg (28.0-32.0); Mean Corpuscular Hgb Conc. 33.9 g/dL (32.0-36.0); Mean Corpuscular Volume 89.3 fL (80.0-100.0); Monocytes # (auto) 0.3 10 ^3/uL (0-1.3); Monocytes % (auto) 6.6 % (0.0-12.0); Neutrophils # (auto) 1.8 10 ^3/uL (1.6-8.6); Neutrophils % (auto) 44.4 % (37.0-80.0); Nucleated Red Blood Cells % 0.2 %; Platelet Count (auto) 273 10^3/uL (140-450); Red Blood Cells 4.24 10^6/uL (4.0-5.20); Red Cell Distribution Width 13.5 % (11.8-14.3)
[2025-01-14 19:18] LABS: Albumin 4.2 g/dL (3.2-4.8); Alkaline Phosphatase 62 U/L (46-116); Anion Gap 5 (5-15); Bilirubin, Total 0.4 mg/dL (0.2-1.0); Calcium 9.7 mg/dL (8.7-10.4); Carbon Dioxide 27 mmol/L (20-31); Glucose 86 mg/dL (74-106); Lipase 34 U/L (12-53); Sodium 140 mmol/L (136-145); Total Protein 7.3 g/dL (5.7-8.2)
[2025-01-14 19:19] LABS: Alanine Aminotransferase < 9 U/L (7-40); Aspartate Aminotransferase 9 U/L (13-40); Blood Urea Nitrogen 8 mg/dL (9-23); Chloride 108 mmol/L (98-107)
--- NOTE | 2025-01-14 20:07 | DVH ---
Exam: CT CT AB PEL WO CON-NO ORAL OR IV History: right flank pain Comparison Study: None available at time of dictation. TECHNIQUE: Multidetector CT of the abdomen was performed from lung bases to pubic symphysis. Imaging was performed without IV contrast. Axial, coronal and sagittal multiplanar reformats were obtained fr om the axial data set by the technologist. Radiation Dose Information: CT Dose: CTDI volume is 23.81 mGy. Dose-length product is 1322.38 mGy*cm FINDINGS: Evaluation of solid organs is limited due to lack of intravenous contrast use. Findings: Lung Bases: No acute or significant lung base finding. Normal heart size. No pleural or pericardial effusion. Liver: The liver is normal in size. No focal lesions. Gallbladder and Biliary Tree: Gallbladder is contracted Spleen: Unremarkable Pancreas: The pancreas is grossly normal in appearance. Adrenal Glands: Unremarkable Kidneys: Kidneys are grossly normal without calculi or hydronephrosis. Bladder: Grossly unremarkable for degree of distention. Bowel: The stomach is grossly normal in appearance. Small bowel and colon are normal in caliber and d istribution. No findings of bowel obstruction. Stool noted throughout the colon The appendix is not v isualized; however, no secondary findings of acute appendicitis identified. Ascites: Absent Lymphadenopathy: No mesenteric, retroperitoneal or periportal lymphadenopathy. Abdominal Wall and Mesentery: Unremarkable. Vasculature: The visualized abdominal aorta is normal in size and caliber. Evaluation of abdominal a nd pelvic vessels is limited due to lack of intravenous contrast. Pelvic Organs: Unremarkable Musculoskeletal: No aggressive focal bony lesions, acute fractures or dislocation. Soft tissues: Unremarkable IMPRESSION: 1. Gallbladder contracted. 2. No findings of bowel obstruction, stool noted throughout the colon. 3. No nephrolithiasis or hydronephrosis 4. Sigmoid colon appears normal. There is no free air or free fluid. HS:Y Radiation optimization: All CT scans at this facility use at least one of these dose optimization gurmeet hniques: automated exposure control mA and/or kV adjustment per patient size (includes targeted exam s where dose is matched to clinical indication) or iterative reconstruction.
[2025-01-14] MEDS ORDERED: GABA300T4 PO (20:19)
[2025-01-14] MEDS ORDERED: ONDA-180 PO (20:19)
[2025-01-14 20:37] VITALS: BP 135/83; PULSE 72; RESP 16; TEMP 98.4; O2SAT 98
[2025-01-16 13:07] LABS: Chlamydia Trachomatis, NAA Negative (Negative); Neisseria gonorrhoeae, NAA Negative (Negative)
== END 2025-01-14 20:38 | disposition home or self-care (01) ==
LOC: ER 18:10
DX: R10.31 Right lower quadrant pain (principal); R50.9 Fever, unspecified; F15.90 Other stimulant use, unspecified, uncomplicated; Z98.890 Other specified postprocedural states; Z79.899 Other long term (current) drug therapy
CPT/HCPCS: 36415; 74176; 80053; 81001; 81025; 83690; 85025; 87491; 87591; 96361; 96374; 99285; J1885; J7030

== ENCOUNTER → 2025-05-25 | Day surgery (SDC) | payer MEDICAID ==
--- NOTE | 2025-05-22 13:07 | DVHHP ---
ADMIT DATE: 05/25/2025 CHIEF COMPLAINT: Desires bilateral tubal sterilization, desires bilateral salpingectomy. HISTORY OF PRESENT ILLNESS: The patient is a 39-year-old 7, para 3-0-4-3, admitted for laparoscopic tubal sterilization. The patient wants bilateral salpingectomy, definitive treatment. She understands that she will not be able to get or have any chance for with tubes gone. Risks, complications, and indications discussed with the patient. The patient wishes to proceed with planned procedure. Possibility of tubal sterilization via Filshie clip in event of short tube or technical difficulty discussed with the patient. The patient understands and agrees. PAST MEDICAL HISTORY: None. PAST SURGICAL HISTORY: x 3, two D and C's for termination. SOCIAL HISTORY: None. FAMILY HISTORY: None. 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 ALLERGIES: No known drug allergies. REVIEW OF SYSTEMS: Consistent with HPI. PHYSICAL EXAMINATION: VITAL SIGNS: Temperature afebrile. HEENT: Within normal limits. CARDIOVASCULAR: Regular rate and rhythm. LUNGS: Clear to auscultation. BREASTS: Symmetrical. No masses. ABDOMEN: Soft, nontender. PELVIC: External genitalia within normal limits. Vagina normal. Cervix grossly normal appearing. Uterus 8-week size. Adnexa nonpalpable. EXTREMITIES: No clubbing, cyanosis, or edema. IMPRESSION: * Multiparity, desires bilateral tubal sterilization. * Desires bilateral salpingectomy. * Morbid obesity. PLAN: Informed consent obtained. We will proceed with laparoscopic bilateral salpingectomy, possible bilateral sterilization via Filshie clips. Informed consent obtained. Risks and complications of surgery including infection, bleeding, hematoma formation, injury to bowel or bladder or surrounding organs, possibility of DVT, pulmonary embolism, and risk of anesthesia discussed. The patient's options reviewed. All questions answered. Failure rate with this procedure discussed with the patient. The patient fully understands. She wishes to proceed with planned procedure. DO EILEEN Combs/OLIVER TID: [id number] RECEIPT: [id number]
[2025-05-23 10:22] LABS: Hematocrit 38.5 % (36.0-46.0); Hemoglobin 13.4 g/dL (12.2-16.2); Mean Corpuscular Hemoglobin 30.9 pg (28.0-32.0); Mean Corpuscular Volume 88.5 fL (80.0-100.0); Nucleated Red Blood Cells % 0.1 %
[2025-05-23 10:26] LABS: Urine Protein, UAD Negative (Negative)
[2025-05-23 10:30] LABS: INR 0.94 (0.9-1.15); Partial Thromboplastin Time 27.6 SEC (24.5-34.5); Prothrombin Time 10.0 sec (9.3-11.8)
[2025-05-23 10:36] LABS: Alanine Aminotransferase 10 U/L (7-40); Alkaline Phosphatase 62 U/L (46-116); Anion Gap 8 (5-15); BUN/Creatinine Ratio 8.5 (10.0-20.0); Calcium 9.1 mg/dL (8.7-10.4); Carbon Dioxide 26 mmol/L (20-31); Chloride 106 mmol/L (98-107); Glucose 92 mg/dL (74-106); Potassium 3.9 mmol/L (3.5-5.1); Sodium 140 mmol/L (136-145)
[2025-05-23 10:37] LABS: Albumin 4.1 g/dL (3.2-4.8); Blood Urea Nitrogen 7 mg/dL (9-23); Total Protein 7.5 g/dL (5.7-8.2)
[2025-05-23 10:38] LABS: Bilirubin, Total 0.4 mg/dL (0.2-1.0)
[~2025-05-25] VITALS: Ht 162.6 cm; Wt 86.6 kg
[~2025-05-25] MED LIST changes: +DOCU-94 PO; +HYDR-4072 PO; +HYDROmorphone HCL 2 MG/ML VL/or syr IV PRN; +HYDROmorphone HCL 2 MG/ML VL/or syr ONE; +IBUP-1456 PO; +KETAMINE 50mg/ML 1ml syringe ONE; +LIDOCAINE 1% INJ PF 5ML AMP ONE; +LIDOCAINE HCL 2% TOP JELLY 5ML TOP ONE; +MIDAZOLAM HCL 2MG/2ML 2ml VIAL (1mg/ml) ONE; +MORPHINE SULFATE 4 MG/ML SYR/VIAL IV PRN; +MORPHINE SULFATE INJ 2 MG/ml SYRG IV PRN; +ONDANSETRON HCL 4 MG/2 ML VIAL ONE; -PREN-96 PO; +PROPOFOL 10 MG/ML 20 ML IV ONE; +ROCURONIUM 10MG/ML 10ML VIAL IV ONE; +SUGAMMADEX 200mg/2ml Vial (100MG/ML) IV ONE; +ZOFR4T PO; +ceFAZolin 2 GM/D5W50ml 50 ML IV ONE; +fentaNYL CITRATE 100 MCG/2 ML VL ONE
[2025-05-25] MEDS: BUPIVACAINE 0.5% P/F INJ 10 ML VIAL ONE (09:37)
[2025-05-25 09:48] VITALS: PULSE 88; RESP 15; TEMP 97.2; O2SAT 98
[2025-05-25] MEDS: METOCLOPRAMIDE HCL 5MG/ml INJ 2ml VIAL IV PRN (10:00)
[2025-05-25] MEDS: KETOROLAC TROMETH 30 MG/ML 1ML VIAL IV ONE (10:01)
[2025-05-25] MEDS: HYDROmorphone HCL 2 MG/ML VL/or syr IV PRN (10:16)
[2025-05-25 11:20] VITALS: BP 116/78; PULSE 76; RESP 12; O2SAT 98
--- NOTE | 2025-05-25 15:28 | DVHOP2 ---
Operative Report DATE OF OPERATION: 05/25/25 PREOPERATIVE DIAGNOSES: 1. Desires elective tubal sterilization. 2. morbid obesity,extensive pelvic adhesion ,previous csx3 POSTOPERATIVE DIAGNOSES: 1. Desires elective tubal sterilization. 2. same SURGEON: Crystal Gale D.O./tram ANESTHESIOLOGIST: berkley TYPE OF ANESTHESIA : General. CONSENT: The patient was informed of the risks and benefits of the procedure. The patient was informed of the risks and benefits of the procedure. These include but are not limited to , complications of anesthesia, postoperative infection, incomplete relief of symptoms, recurrence of symptoms, damage to blood vessels, nerves and tendons, deep venous thrombosis, pulmonary embolism and possible need for repeat surgery in the future.pt was counseled that in event of adhesions she wouldnt have salpingectomy and would undergo filschie clip placement FINDINGS: Cervix is grossly normal appearing. Uterus is 8 weeks' size. Adnexa nonpalpable. COMPLICATIONS: None. BLOOD PRODUCTS USED: None. PROCEDURES: Laparoscopic placement of Filschi Clips to bilateral tubes PROCEDURE IN DETAIL: The patient was taken to the operating room where she was placed under general anesthesia. The patient was then prepped and draped in the usual sterile manner in the dorsal lithotomy position. The bladder was emptied using a straight catheter. Examination under anesthesia revealed the above findings. A weighted speculum was placed in the vagina. The anterior lip of the cervix was grasped using single-tooth tenaculum. Cervix was dilated. Uterus sounded to 8 cm. HUMI catheter was placed. Attention was then turned to the abdomen where a Veress needle was introduced. Abdomen was distended with 3L of CO2 gas. Using Visiport, abdomen was entered under direct visualization. Survey of abdominal cavity revealed extensive adhesion finding. A 8 mm trocar was placed into the suprapubic region. Filshie clip was then loaded on the right tube as well as the left. No bleeding was noted. All the instruments were removed from the abdomen and pelvis. CO2 gas released. Incisional ports were closed using #4-0 Vicryl and liv for the larger port. The patient tolerated the procedure well. All instruments were removed from the patient's cervix. The patient was taken to the recovery room in a stable condition. ESTIMATED BLOOD LOSS: 20 mL Visit Coding OBGYN Date of Service: May 25, 2025 Billing Provider: CRYSTAL GALE DO FAMILY MEDICINE PHYSICIAN ASSISTANT Common Visit Codes: 92821-[id number] OBS CARE (HIGH) FAMILY MEDICINE PHYSICIAN ASSISTANT Procedure Codes: 24814-FNC.SURG:ON OVIDUCT/OVARY CRYSTAL GALE DO May 25, 2025 15:27
--- NOTE | 2025-05-25 15:32 | POSTOP ---
Post-Operative Note Post-Operative Note Preop Diagnosis desires tubal sterilization morbid obesity Postop Diagnosis: same,pelvic adhesions Operation performed lap placement of filschie clips Specimen none Anesthesia: General Anesthesiologist: berkley Blood Loss(fluid mgmt) 20ml Surgeon Crystal Gale Sales Executive Insurance tram Implant filschie clips Complications & Mgmt none Date 05/25/25 Time 15:30 Visit Coding OBGYN Date of Service: May 25, 2025 Billing Provider: CRYSTAL GALE DO RUG DRY ROOM ATTENDANT Common Visit Codes: 85425-[id number] OBS CARE (HIGH) RUG DRY ROOM ATTENDANT Procedure Codes: 14495-TBF.SURG:ON OVIDUCT/OVARY CRYSTAL GALE DO May 25, 2025 15:32
--- NOTE | 2025-05-25 15:34 | DVHDS2 ---
Physician Discharge Progress N Final Diagnosis: desires tubal ligation ,pelvic adhesions Operations or Procedures: Operations or Procedures lap placement of filschie clips Condition on Discharge: Good Disposition: Home Discharge Instructions: Diet: Regular Activity: Light activity Medications: ronda chavez Follow Up Care: Specialist: 1w Discharge Statement: "Patient was advised to return to the ER or call 911 if any headaches, dizziness, shortness of breath, chest pain, abdominal pain, bleeding, fevers, or worsening of medical condition. Patient was counseled about treatment plan, medications, possible side effects, patientverbalized understanding. All questions were answered to the best of my ability. This discharge took greater then 30 minutes in planning, reviewing documentation, counseling the patient, and discussing with other team members." Visit Coding OBGYN Date of Service: May 25, 2025 Billing Provider: JOANNA TALLEY DO STEAM BOX HAND Common Visit Codes: 06943-HWRQCDT OBS CARE (HIGH), 24917-UHB/OBS DISCH DAY >30MIN STEAM BOX HAND Procedure Codes: 14622-IDI.SURG:W/REM ADNEXAL STRUCT JOANNA TALLEY DO May 25, 2025 15:34
== END | disposition home or self-care (01) ==
LOC: SUR 06:08
PROVIDERS: ATTEND Obstetrics & Gynecology
DX: Z30.2 Encounter for sterilization (principal); N73.6 Female pelvic peritoneal adhesions (postinfective); E66.01 Morbid (severe) obesity due to excess calories; Z64.1 Problems related to multiparity; Z98.891 History of uterine scar from previous surgery
CPT/HCPCS: 36415; 58671; 80053; 81001; 81025; 84702; 85025; 85610; 85730; 86850; 86900; 86901; A4264; J0690; J1171; J1885; J2250; J2405; J2704; J2765; J3010; J3490